=== PATIENT | male | born 1985 | race Two or more races ===

== ENCOUNTER 2024-01-22 14:41 | Emergency (ER) | payer BC, MEDICAID ==
[~2024-01-22] VITALS: Ht 175.3 cm; Wt 88.5 kg
[2024-01-22 14:48] VITALS: O2SAT 96
[2024-01-22] MEDS ORDERED: ACET1TAB23 PO (17:11)
--- NOTE | 2024-01-22 17:20 | NUR ---
Patient discharged to home in stable condition. Written and verbal after care instructions given. Patient verbalizes understanding of instructions. Stressed follow up or return to ER for worsening s/s.
== END 2024-01-22 17:21 | disposition home or self-care (01) ==
LOC: ER 14:41
DX: S16.1XXA Strain of muscle, fascia and tendon at neck level, initial encounter (principal); Z79.1 Long term (current) use of non-steroidal anti-inflammatories (NSAID); V89.2XXA Person injured in unspecified motor-vehicle accident, traffic, initial encounter; Y93.89 Activity, other specified; Y92.89 Other specified places as the place of occurrence of the external cause; Y99.8 Other external cause status
CPT/HCPCS: A4606; A4663